=== PATIENT | female | born 1945 | race Asian ===

== ENCOUNTER 2018-09-05 10:26 | Emergency (ER) | payer OTHER, MEDICAID ==
[~2018-09-05] VITALS: Ht 142.2 cm; Wt 52.2 kg
[2018-09-05 10:30] VITALS: Ht 142.2 cm; Wt 52.2 kg
[2018-09-05 12:16] VITALS: BP 132/87
== END 2018-09-05 12:16 | disposition home or self-care (01) ==
LOC: ED 10:26 → EDBD 10:26 → ED 12:16
DX: S52.512A Displaced fracture of left radial styloid process, initial encounter for closed fracture (principal); S52.612A Displaced fracture of left ulna styloid process, initial encounter for closed fracture; E78.00 Pure hypercholesterolemia, unspecified; I10 Essential (primary) hypertension; G20 Parkinson's disease; Z98.890 Other specified postprocedural states; W18.30XA Fall on same level, unspecified, initial encounter; Y93.89 Activity, other specified; Y92.89 Other specified places as the place of occurrence of the external cause; Y99.8 Other external cause status
CPT/HCPCS: A4570

== ENCOUNTER 2018-10-06 21:00 | Inpatient (IN) | payer OTHER, MEDICAID ==
[~2018-10-06] VITALS: Ht 154.9 cm; Wt 54.4 kg
[2018-10-06 21:04] VITALS: Ht 154.9 cm; Wt 54.4 kg
--- NOTE | 2018-10-06 21:33 | NUR ---
PT BIB [facility] FROM HOME, PER FAMILY AT BEDSIDE, PT HAS HAD INTERMITTANT N/V X 2-3 WEEKS WITH INCREASED GENERALIZED WEAKNESS AND BODY ACHES, NECK/KNEE, PAIN TODAY, 10/22. FAMILY DENIES DIARRHEA/CONSTIPATION, PAINFUL URINATION, FEVERS, OR RESP ILLNESS AT THIS TIME. PER FAMILY, PT HAS HAD TRX FOR UTI, AND ADJUSTMENT TO BP MEDS RECENTLY. NO SIGNS OF DISTRESS AT THIS TIME.
[2018-10-06 21:39] LABS: BASOPHIL % 0.9 % (0-2); PLATELET COUNT 182 x10^3mcL (130-400); RED CELL DISTRIBUTION WIDTH 13.9 % (11.5-14.5)
[2018-10-06 21:49] LABS: ALBUMIN 3.1 g/dL (3.4-5.0); ALKALINE PHOSPHATASE 40 U/L (46-116); ALT/SGPT 12 U/L (14-59); AST/SGOT 13 U/L (15-37); BILIRUBIN TOTAL 0.7 mg/dL (0.20-1.00); CALCIUM 8.2 mg/dL (8.5-10.1); CARBON DIOXIDE 27.2 mmol/L (21-32); CHLORIDE SERUM 110 mmol/L (98-107); CREATININE SERUM 1.5 mg/dL (0.6-1.0); GLUCOSE SERUM 165 mg/dL (74-106); SODIUM SERUM 145 mmol/L (136-145); TOTAL PROTEIN, SERUM 5.7 g/dL (6.4-8.2)
[2018-10-06 21:57] LABS: UA SPECIFIC GRAVITY >=1.030 (1.005-1.035); microscopic required? YES; urine erythrocyte NEGATIVE (NEGATIVE)
[2018-10-06] MEDS ORDERED: COZAAR100 MG PO (22:53)
[2018-10-06] MEDS ORDERED: LATANOPROST2.5 ML (22:54)
--- NOTE | 2018-10-06 22:54 | NUR ---
PT RESTING IN BED WITH EYES CLOSED WITH NO SIGNS OF DISTRESS AT THIS TIME. FAMILY AT BEDSIDE.
[2018-10-06] MEDS ORDERED: SINEMET 25-1001 TAB (22:55)
[2018-10-06] MEDS ORDERED: SIMBRINZA8 ML (22:55)
[2018-10-06] MEDS ORDERED: HYDRALAZINE HCL25 MG ×2 (22:55→22:57)
[2018-10-06] MEDS ORDERED: ASPIR 8181 MG (22:55)
[2018-10-06] MEDS ORDERED: BETHANECHOL CHL25 MG (22:56)
[2018-10-06] MEDS ORDERED: MELOXICAM15 M1 (22:56)
[2018-10-06] MEDS ORDERED: BACLOFEN10 MG (22:56)
[2018-10-06] MEDS ORDERED: LIPI20 ×2 (22:56→22:57)
[2018-10-06] MEDS ORDERED: COZAAR100 MG (22:56)
[2018-10-06] MEDS ORDERED: AZILECT1 M1 (22:57)
[2018-10-06] MEDS ORDERED: NATURE'S BLEND F1 MG (22:57)
--- NOTE | 2018-10-06 23:25 | NUR ---
PT RESTING IN BED WITH NO SIGNS OF DISTRESS AT THIS TIME. FAMILY AT BEDSIDE SPEAKING WITH MED STUDENT.
[2018-10-06 23:48] LABS: microscopic required? NO
[2018-10-06 23:53] LABS: urine erythrocyte NEGATIVE (NEGATIVE)
--- NOTE | 2018-10-06 23:55 | NUR ---
REPORT GIVEN TO ARLINE MARINELLI.
--- NOTE | 2018-10-07 00:09 | NUR ---
RECEIVED PT VIA [employer] FROM E/D, ACCOMPANIED BY RN, TRANSPORTER, AND PT'S DAUGHTER. PT A/A/O X 4, CALM, COOPERATIVE. ON TELE # 19, HR 62, NSR, DENIES CHEST PAIN OR DISCOMFORT AT THIS TIME. NO ACUTE RESPIRATORY DISTRESS NOTED. ABD SOFT, FLAT, NON-TENDER, NORMOACTIVE BOWEL SOUNDS X 4 QUADS, LAST BM 10/06/18, SOFT, DENIES NAUSEA, WEARS UPPER/LOWER PARTIAL DENTURES. VOIDS FREELY, DENIES DYSURIA. GENERALIZED WEAKNESS, ABLE TO AMBULATE W/ ASSIST, USES WALKER @ HOME, NOTED BUE TREMORS, DAUGHTER STATED THAT PT FELL LAST MONTH AND BROKE HER R WRIST; IT HAS SINCE HEALED; C/O INTERMITTENT THROBBING NECK PAIN 08/22, EXACERBATED BY TWISTING, RELIEVED BY REST AND PAIN MEDICATIONS. IV SITE RAC 20G, CDI. ORIENTED PT AND DAUGHTER TO ROOM, BED CONTROLS, CALL LIGHT SYSTEM. SIDE RAILS UP X 2, BED IN LOW POSITION. WILL ENDORSE TO YVES RBUIN.
[2018-10-07 00:12] LABS: T3 TOTAL 0.7 ng/mL
[2018-10-07 00:15] LABS: AMPHETAMINE QUAL UR NONE DETECTED (See below)
[2018-10-07 00:33] VITALS: BP 120/55
[2018-10-07 00:43] LABS: FREE T4 0.98 ng/dL (0.76-1.46); FREE THYROXINE INDEX 2.3 ug/dL (1.4-4.5); T4(THYROXINE) 6.4 ug/dL (4.7-13.3)
--- NOTE | 2018-10-07 00:53 | NUR ---
PT AWAKE ALERT VERBAL DENIES PAIN AT THIS TIME, IVF NS STARTED @ 100 CC/HR, MD MADE AWARE OF K+ LEVEL 3.0 AWAITING FOR ORDERS, CONT TO MONITOR.
[2018-10-07 01:16] LABS: CHOLESTEROL/HDL RATIO 3.2; MAGNESIUM 1.6 mg/dL (1.8-2.4)
--- NOTE | 2018-10-07 01:46 | NUR ---
PT ASLEEP DURING ROUNDS NO S/SX OF PAIN, NO DISTRESS, SB IN THE MONITOR HR @ 50'S IVF INFUSING WELL ORDERED, CALL LIGHT AT REACH, CONT TO MONITOR.
--- NOTE | 2018-10-07 01:57 | NUR ---
REMINDED RESIDENT ON DUTY OF LOW K+ LEVEL STILL NOT REPLACED, AWAITING FOR ORDERS.
--- NOTE | 2018-10-07 03:19 | NUR ---
POTASSIUM 20 MEQ IV HANGED FOR K+LEVEL 3.0, ALSO GAVE MG RIDER FOR MG LEVEL 1.6, PT AWAKE ORIENTED UTILIZED PHONE TRANSLATION TO COMMUNICATE, DENIES PAIN, CONT TO MONITOR.
[2018-10-07 05:23] VITALS: BP 112/55
--- NOTE | 2018-10-07 06:25 | NUR ---
COMPLETED K-RIDER AND MG RIDER ORDERED ROCAEL WELL, PT SLEPT INTERMITTENT DURING THE SHIFT, DENIES PAIN NO DISTRESS, DUE MEDS GIVEN, WILL ENDORSE TO INCOMING SHIFT FOR F/U CARE.
[2018-10-07 06:53] LABS: BASOPHIL % 0.6 % (0-2); PLATELET COUNT 177 x10^3mcL (130-400); RED CELL DISTRIBUTION WIDTH 13.8 % (11.5-14.5)
[2018-10-07 07:01] LABS: CALCIUM 8.1 mg/dL (8.5-10.1); CARBON DIOXIDE 20.7 mmol/L (21-32); CHLORIDE SERUM 115 mmol/L (98-107); CREATININE SERUM 1.3 mg/dL (0.6-1.0); GLUCOSE SERUM 85 mg/dL (74-106); POTASSIUM SERUM 3.9 mmol/L (3.5-5.1); SODIUM SERUM 146 mmol/L (136-145)
--- NOTE | 2018-10-07 07:05 | NUR ---
RECEIVED PT FROM NIGHT NURSE. PT IS LAYING DOWN IN BED AND LOOKS TO BE IN NO ACUTE DISTRESS AT THIS TIME. ULTRASOUND IS AT BEDSIDE TAKING US OF ABD AND CAROTID. TELE MONITOR 19 PRESENT. RESPIRATIONS EVEN AND UNLABORED ON ROOM AIR. IV SITE PATENT WITH NO SIGNS OF ERYTHEMA OR SWELLING WITH IV FLUIDS INFUSING. CALL LIGHT WITHIN REACH. WILL CONITNUE TO MONITOR.
[2018-10-07 08:08] VITALS: BP 118/66
--- NOTE | 2018-10-07 10:00 | NUR ---
PT IS LAYING DOWN IN BED. FAMILY MEMBER AT BEDSIDE. PT LOOKS TO BE IN NO ACUTE DISTRESS AT THIS TIME. CALL LIGHT WITHIN REACH. WILL CONITNUE TO MONITOR.
[2018-10-07 11:42] VITALS: BP 138/70
--- NOTE | 2018-10-07 12:53 | NUR ---
PT COMPLAINING OF FEELING NAUSEATED. EMESIS BASIN AT BEDSIDE. WILL MEDICATE ACCORDING TO EMAR.
--- NOTE | 2018-10-07 14:00 | NUR ---
GAVE PT A BEDBATH WELL A NEW GOWN AND SHEETS. PT TOLERATED WELL AND IS NOW MADE COMFORTABLE IN BED. CALL LIGHT WITHIN REACH. WILL CONINTUE TO MONITOR.
[2018-10-07 16:23] VITALS: BP 148/62
--- NOTE | 2018-10-07 20:00 | NUR ---
RECEIVED PT , RESTING QUIETLY IN BED. ALERT AND ORIENTED. DENIES ANY DISCOMFORT AT THIS TIME. RESP. EVEN AND UNLABORED. LUNG SOUNDS CLEAR BILAT. ON ROOM AIR,NO ACUTE DISTRESS NOTED. ON TELE #19, SHOWS SR. DENIES CP. ABD. SOFT, NON DISTENDED, BS ACTIVE, NO N/V NOTED. HL TO RAC, INTACT AND PATENT. ASSISTED WITH HS CARE. CALL LIGHT WITHIN REACH. WILL CONTINUE TO MONITOR.
[2018-10-07 20:40] VITALS: BP 165/70
--- NOTE | 2018-10-07 23:03 | NUR ---
PT,S CARE ENDORSED TO WHITNEY MARINELLI.
--- NOTE | 2018-10-08 00:05 | NUR ---
RECEIVED REPORT FROM RODNEY MARINELLI FOR CONTINUATION OF CARE. PATIEN AWAKE IN BED. RESPIRATION EVEN AND UNLABORED, ON ROOM AIR. RESPIRATION EVEN AND UNLABORED, ON ROOM AIR. NO COMPLAIN OF DISCOMFORT/PAIN. WILL CONTINUE TO MONITOR.
[2018-10-08 05:05] VITALS: BP 153/71
--- NOTE | 2018-10-08 05:55 | NUR ---
PATIENT RESTING IN BED. RESPIRATION EVEN AND UNLABORED, ON ROOM AIR. DENIES PAIN AT THIS TIME. IV PATENT AND INTACT. ASSISTED WITH NEEDS. SAFETY OBSERVED. PLACED BED IN THE LOWEST POSITION. PLACED CALL LIGHT WITHIN REACH AT ALL TIMES.
[2018-10-08 06:26] LABS: PLATELET COUNT 200 x10^3mcL (130-400); RED CELL DISTRIBUTION WIDTH 13.8 % (11.5-14.5)
--- NOTE | 2018-10-08 07:15 | NUR ---
RECIEVED PT FROM NIGHT NURSE. PT IS LAYING DOWN IN BED WITH HOB UP RESTING. PT LOOKS TO BE IN NO ACUTE DISTRESS AT THIS TIME. RESPIRATIONS EVEN AND UNLABORED ON ROOM AIR. SLID PT UP IN BED AND MADE COMFORTABLE. IV SITE PATENT WITH NO SIGNS OF ERYTHEMA OR SWELLING. BED IN LOWEST POSITION, CALL LIGHT WITHIN REACH. WILL CONTINUE TO MONITOR.
[2018-10-08 07:47] LABS: CALCIUM 8.4 mg/dL (8.5-10.1); CARBON DIOXIDE 25.6 mmol/L (21-32); CHLORIDE SERUM 112 mmol/L (98-107); CREATININE SERUM 1.1 mg/dL (0.6-1.0); GLUCOSE SERUM 98 mg/dL (74-106); MAGNESIUM 2.1 mg/dL (1.8-2.4); PHOSPHOROUS 3.3 mg/dL (2.5-4.9); POTASSIUM SERUM 3.6 mmol/L (3.5-5.1); SODIUM SERUM 147 mmol/L (136-145)
[2018-10-08 08:11] VITALS: BP 146/69
[2018-10-08] MEDS ORDERED: LOSARTAN POTASS50 M1 PO (08:55)
[2018-10-08 11:53] VITALS: BP 122/71
[2018-10-08 13:12] VITALS: BP 122/71
[2018-10-08] MEDS ORDERED: CHLORTHALIDONE25 MG (13:15)
[2018-10-08] MEDS ORDERED: RHOPRESSA2.5 ML (13:15)
--- NOTE | 2018-10-08 13:30 | NUR ---
INFORMED DR OF PHYSCIAL THERAPY REQUEST TO SEND PT TO SNF FOR PHYSCIAL THERAPY. CANCELED DISCHARGE ORDER. SPOKE WITH FAMILY MEMBER AND PT, BOTH AGREE TO SNF PLACEMENT.
--- NOTE | 2018-10-08 14:45 | NUR ---
PT REFUSING TO GO TO SNF AND WOULD LIKE TO LEAVE TO GO HOME. PT CHANGED INTO CLOTHES AND RIPPED OF TELE MONITOR. INFORMED PT OF THE RISK OF LEAVING AMA, FAMILY MEMBER VERBALIZED UNDERSTANDING AND STATED PT STILL WANTS TO GO HOME NOW. ASKED FAMILY MEMBER IF PT WOULD BE OKAY WITH HOME HEALTH PT, FAMILY MEMBER AND PT AGREEABLE, PAGED DR. HERNANDEZ TO INFORM.
--- NOTE | 2018-10-08 15:14 | NUR ---
ATTEMPTED TO PUT ON TELE MONITOR UNTIL CALLS BACK ABOUT HOME PHYSCIAL THERAPY, PT REFUSED. PT EDUCATED UPON REFUSAL. AWATING TO HEAR BACK FROM DR. HERNANDEZ
--- NOTE | 2018-10-08 15:20 | NUR ---
DR. HERNANDEZ CAME TO PT BEDSIDE TO TALK WITH PT AND FAMILY MEMBER ABOUT PT STATUS FOR DISCHARGE. FAMILY MEMBER TRANSLATED AND PT STATES (TRANSLATED BY FAMILY MEMBER) THAT SHE WANTS TO GO HOME. PT SEEMS VERY AGITATED AND IS SPEAKING VERY LOUDLY WHEN RESPONDING.
--- NOTE | 2018-10-08 16:20 | NUR ---
PT AWAKE, ALERT AND ORIENTED AT TIME OF DISCHARGE. PT SEEMED PLEASANT AND LOOKED TO BE IN NO ACUTE DISTRESS AT TIME OF DISCHARGE. PT DISCHARGED HOME AND WAS PROVIDED A NUMBER FOR HOME HEALTH FOR PHYSICAL THERAPY. PT WENT TO LOBBY VIA WHEELCHAIR ACCOMPANIED BY NURSE WITH BELONGINGS IN HAND , FAMILY MEMBER DOWNSTAIRS WITH CAR TO TAKE PT HOME PROVIDED PT AND FAMILY MEMBER WITH DISCHARGE INSTRUCTIONS AND EDUCATION WELL PRESCRIPTIONS. FAMILY MEMBER VERBALIZED UNDERSTANDING. INFORMED PT TO FOLLOW UP WITH PCP WITHIN 1 WEEK OF DISCHARGE. ID BANDS REMOVED. IV CATHETER REMOVED AND FULLY INTACT. ALL QUESTIONS AND CONCERNS ADDRESSED.
--- NOTE | 2018-10-10 14:47 | NUR ---
PHYSICAL THERAPY DAILY NOTES CO-SIGN All documentation done by the Behavioral Medical Director for 10/10/18 has been reviewed. I agree with the documentation. Reviewed/Co-Signed by: Mary Rogers PT Documentation Done by:FRANCO SAMPSON PTA FOR 10/08/18
== END 2018-10-08 16:34 | disposition home or self-care (01) | DRG 314 ==
LOC: ED 21:00 → DU 23:12
PROVIDERS: Emergency Medicine; ADMIT General Practice
DX: I95.9 Hypotension, unspecified (principal); N17.0 Acute kidney failure with tubular necrosis; E44.0 Moderate protein-calorie malnutrition; N39.0 Urinary tract infection, site not specified; I95.2 Hypotension due to drugs; T46.5X5A Adverse effect of other antihypertensive drugs, initial encounter; T50.2X5A Adverse effect of carbonic-anhydrase inhibitors, benzothiadiazides and other diuretics, initial encounter; E87.6 Hypokalemia; E86.1 Hypovolemia; E86.0 Dehydration; R54 Age-related physical debility; G20 Parkinson's disease; F02.80 Dementia in other diseases classified elsewhere, unspecified severity, without behavioral disturbance, psychotic disturbance, mood disturbance, and anxiety; I10 Essential (primary) hypertension; D50.9 Iron deficiency anemia, unspecified; E78.00 Pure hypercholesterolemia, unspecified; Z91.81 History of falling; Z68.22 Body mass index [BMI] 22.0-22.9, adult; Y92.009 Unspecified place in unspecified non-institutional (private) residence as the place of occurrence of the external cause
CPT/HCPCS: 84439; 97116-GP; 97530-GP; G0378; J0696; J1885; J2405; J3475; J3480; J7030; J7040; J7060; Q0092

== ENCOUNTER 2018-12-01 13:49 | Inpatient (IN) | payer OTHER, MEDICAID ==
[~2018-12-01] VITALS: Ht 160 cm; Wt 43.7 kg
[~2018-12-01 13:49] MED LIST: ASPIR 8181 MG; AZILECT1 M1; BACLOFEN10 MG; BETHANECHOL CHL25 MG; CHLORTHALIDONE25 MG; COZAAR100 MG; COZAAR100 MG PO; HYDRALAZINE HCL25 MG; LATANOPROST2.5 ML; LIPI20; LOSARTAN POTASS50 M1 PO; MELOXICAM15 M1; NATURE'S BLEND F1 MG; RHOPRESSA2.5 ML; SIMBRINZA8 ML; SINEMET 25-1001 TAB
[2018-12-01 14:18] VITALS: Ht 160 cm; Wt 43.7 kg
--- NOTE | 2018-12-01 14:26 | NUR ---
PT BROUGHT IN BY [facility] FOR 5150. PER DAUGHTER AT BEDSIDE AND 5150 HOLD, PT BROUGHT IN FOR TAKING 12 TRAMADOL PILLS AT HOME WITH INTENTIO OF KILLING HERSELF. PT DAUGHTER REPORTING PT LIVES WITH HER AND THAT SHE IS PLANNING TO GO ON VACATION WEDNESDAY AND SHE WILL BE GONE FOR 3 WEEKS AND PT HAS TO STAY WITH HER SISTER AND THE PATIENT DOES NOT WANT TO GO THERE. PT USES WALKER WITH HELP PER DAUGHTER AT HOME. PT PRIMARY LANGUAGE IS COMORAN. PT ON MOTOR VEHICLE SALESPERSON, SIDE RAILS UP, IV ESTABLISHED YARD PILOT 20G LAC, AND IN VIEW OF NURSES STATION. PT MEDICATION IN BELINGINGS BAG AND PLACED IN NURSES STATION.
--- NOTE | 2018-12-01 14:42 | NUR ---
CALLED POISION CONTROL TO REPORT PT TOOK TRAMADOL 50 MG X12 APPROX 1245 THIS AFTERNOON. PER LOIS, TRAMADOL CAN CAUSE SEDATION AND MINOR BRADYCARDIA OR HYPOTENSION. TREATMENT AT THIS POINT WOULD BE; TO HAVE PT ON CM 4-6 HOURS AND MONITOR FOR LETHARGY, EKG, FULL LAB PANEL, NO CHARCOAL AND GIVE SUPPORTIVE CARE.
--- NOTE | 2018-12-01 14:44 | NUR ---
PT ON FULL CM, DAUGHTER AT BEDSIDE.
--- NOTE | 2018-12-01 15:03 | NUR ---
SHARED POISON CONTROL RECOMMENDATIONS W/ DR. GOMEZ.
[2018-12-01 15:36] LABS: CALCIUM 8.3 mg/dL (8.5-10.1); CHLORIDE SERUM 108 mmol/L (98-107); CREATININE SERUM 1.2 mg/dL (0.6-1.0); GLUCOSE SERUM 107 mg/dL (74-106); POTASSIUM SERUM 3.4 mmol/L (3.5-5.1); SODIUM SERUM 145 mmol/L (136-145)
[2018-12-01 15:40] LABS: ALKALINE PHOSPHATASE 55 U/L (46-116); ALT/SGPT 30 U/L (14-59); AST/SGOT 17 U/L (15-37); BILIRUBIN TOTAL 1.27 mg/dL (0.20-1.00); TOTAL PROTEIN, SERUM 7.4 g/dL (6.4-8.2)
--- NOTE | 2018-12-01 15:46 | NUR ---
SON AT BEDSIDE, PT RESTING AND ON CM. IV FLUIDS COMPLETED AND PT IN VIRE OF NURSES STATION.
[2018-12-01 16:10] LABS: BASOPHIL % 0.7 % (0-2); PLATELET COUNT 208 x10^3mcL (130-400); RED CELL DISTRIBUTION WIDTH 12.9 % (11.5-14.5)
--- NOTE | 2018-12-01 17:21 | NUR ---
PT RETING IN BED IN VIEW OF NURSES STATION. NO APPARENT DISTRESS NOTED. PT ON CLINIC MD ASSOCIATE, COVERED WITH WARM BLANKET FOR COMFORT. I WILL CONTINUE TO MONITOR PT.
--- NOTE | 2018-12-01 19:11 | NUR ---
GAVE REPORT TO MEÑO MARINELLI TO CONTINUE PT CARE AT THIS TIME.
--- NOTE | 2018-12-01 19:27 | NUR ---
PATIENT SEEN SLEEPING, FAMILY AT THE BEDSIDE.
[2018-12-01 20:41] LABS: AMPHETAMINE QUAL UR NONE DETECTED (See below)
[2018-12-01 21:01] LABS: UA SPECIFIC GRAVITY 1.015 (1.005-1.035); microscopic required? YES; urine erythrocyte NEGATIVE (NEGATIVE)
--- NOTE | 2018-12-01 21:24 | NUR ---
PATIENT IS ADMITTED. RESIDENT IS AT THE BEDSIDE. NO BED YET NO AVAILABLE SITTER.
--- NOTE | 2018-12-01 21:59 | NUR ---
FAMILY REQUESTED FOOD. PATIENT WAS GIVEN SANDWICH AND JUICE.
--- NOTE | 2018-12-01 23:12 | NUR ---
PATIENT WAS GIVEN THE BEDPAN AND VOID. wAITING FOR A BED.
--- NOTE | 2018-12-01 23:51 | NUR ---
[facility] FOLLOW [facility] ON PATIENT'S PROGRESS; WAS UPDATED.
[2018-12-02] MEDS ORDERED: COZAAR100 MG PO (01:27)
--- NOTE | 2018-12-02 02:12 | NUR ---
PATIENT IS SLEEPING, NO DISTRESS.
[2018-12-02 03:46] LABS: CHOLESTEROL/HDL RATIO 1.9
--- NOTE | 2018-12-02 04:09 | NUR ---
REPORT WAS GIVEN TO KARA. RICHTER TRANSPORTED TO ROOM 209A.
--- NOTE | 2018-12-02 04:15 | NUR ---
Pt. received via gurney from the ED. Pt. was then transferred from bed to wheelchair to station bed with max assist. Pt. is a Citizen Of [place] speaking pt. only, used coupon redemption clerk phone #[phone] (Nima) to help admit pt. When asked why she was brought to the hospital, pt. states that daughter says she doesn't have Kidney Failure, but she herself believes that she has. Pt. also states that the daughter is lying about pt. taking medicine. When asked if pt. took 12 tramadol, pt. denies taking the medicine. Pt. states that she took 1 tramadol in the morning and 1 at 8pm at night. When asked if pt. wants to hurt herself, she states that "I love Buddha, and he won't let me commit suicide." Pt. denies any pain, a/o x4, Tele #1, Sinus Rhythm, 96. O2 was low at admission, around 90%, respirations at 18, unlabored and symmetrical. Applied O2 via NC @ 2L. Pt. satting at 96% and denies SOB. Abd. soft, round, normoactive bowel sounds, denies any abd. pain. As per pt. last BM was 2 days ago. Reports h(x) of constipation d/t medication taken. Pt. wears adult briefs at home, denies dysuria. Pt. was able to void in bedpan in ER. Pt. has h(x) of Parkinson's, bilateral UE / LE tremors. Pt. nomrally ambulatory w/ FWW at home. Skin intact otherwise. IV site @ L AC, Saline Locked, no redness, swelling, or pain noted. UDS (-), K @ 3.4 and replenished @ ER. Pt. oriented to room and call light system, call light placed within reach, bed placed at lowest position, sitter at bedside, will continue to monitor. *PT. states, "I caused all these problems, and hope I can go home soon."
[2018-12-02 04:57] VITALS: BP 161/91
[2018-12-02 05:30] VITALS: BP 143/76
--- NOTE | 2018-12-02 05:37 | NUR ---
PAGED DR. ROMEO IN REGARDS TO PT ADMIT ORDERS FOR MEDSURG, ALTHOUGH PT HAS A HISTORY OF PROLONGED QT INTERVALS AND NEEDS CARDIAC MONITORING PER POISON CONTROL. PER DR. ROMEO, WILL TRANSFER PT TO TELE. WILL WAIT FOR ORDERS.
[2018-12-02 06:51] LABS: BASOPHIL % 0.7 % (0-2); PLATELET COUNT 190 x10^3mcL (130-400); RED CELL DISTRIBUTION WIDTH 13.3 % (11.5-14.5)
[2018-12-02 06:58] LABS: CALCIUM 8.3 mg/dL (8.5-10.1); CARBON DIOXIDE 27.3 mmol/L (21-32); CHLORIDE SERUM 108 mmol/L (98-107); CREATININE SERUM 1.1 mg/dL (0.6-1.0); GLUCOSE SERUM 93 mg/dL (74-106); POTASSIUM SERUM 4.3 mmol/L (3.5-5.1); SODIUM SERUM 143 mmol/L (136-145)
[2018-12-02 08:21] VITALS: BP 163/93
--- NOTE | 2018-12-02 08:49 | NUR ---
ADMINISTERED MEDICAITON PER MAR. DAUGHTER AT BEDSIDE, UPDATRED DAUGHTER ON PLAN OF CARE, PATIENT STATING SHE DOES NOT WANT TO BE TRANSFERRED TO OUTPATIENT FACILITY. FADUMO THINKS THIS WAS AN ATTEMPT TO GET ATTENTION FROM HER FAMILY BECAUSE SHE DOES NOT WANT TO BE MOVED FROM ONE DAUGHTERS HOUSE TO ANOTHER. PATIENT IS CALM AT THIS TIME WITH NO COMPLAINTS OF PAIN. INFORMED PATIENT AND DAUGHTER THAT WE ARE WAITING FOR CONSULT FROM DR DELGADO BUT UNKNOWN WHEN HE WILL COME TO SEE PATIENT. CALL IGHT WITHIN REACH, SITTER IN ROOM WITH PATIENT
--- NOTE | 2018-12-02 10:08 | NUR ---
DR WILSON AND DR FERRARA ROUNDED ON PATIENT. UPDATED DR OF STATEMENTS FROM FAMILY. ORDERS TO WEEN PATIENT OFF OXYGEN TO BE MEDICALLY CLEARED. RECEIVED CALL FROM POISION CONTROL AND INFORMED ONESIMO FROM POISON CONTROL OF PATIENT CONDITION AND LACK OF UPDATED EKG. DR FERRARA ENTERED ORDER FOR NEW EKG. AWAITING CONSULTATION FROM DR DELGADO.
--- NOTE | 2018-12-02 12:09 | NUR ---
PATIENT OXYGEN SATURATION ON ROOM AIR WAS 95% REMOVED NASAL CANULA AND WILL CONTINUE TO MONITOR. WILL AWAITING CONSULT FROM DR DELGADO. SITTER IN ROOM WITH PATIENT
[2018-12-02 13:15] VITALS: BP 152/85
--- NOTE | 2018-12-02 13:16 | NUR ---
ADMINSITERED MEDICAITON PER MAY. UPDATED FAMILY MEMBER THAT DR DELGADO HAS NOT COME YET, HE MAY COME IN THE EVENING. PATIENT CONTINUES TO HAVE O2 SAT OF 95 ON ROOM AIR. CALL LIGHT WITHIN REACH, SITTER IN ROOM
[2018-12-02 17:18] VITALS: BP 149/85
--- NOTE | 2018-12-02 17:37 | NUR ---
ADMINISTERED MEDICATION PER MAR. MAXWELL SITTING UP TO EAT AT THIS TIME. REMAINS 96% ON ROOM AIR. FAMILY WAS UPDATED THAT WE ARE STILL WAITING DR DELGADO TO SEE PATIENT. CALL LIGHT WITHIN REACH, BED IN LOWEST POSITION AND SITTER IN ROOM
--- NOTE | 2018-12-02 19:35 | NUR ---
RECEIVED PT FROM DAY SHIFT RN. PT AAOX4. DJIBOUTIAN SPEAKING ONLY, DAUGHTER AT BEDSIDE TO HELP TRANSLATE. BREATHING EVEN AND UNLABORED. NO SOB NOTED. TELE #1 SR HR 82. PT DENIES CHEST PAIN/PRESSURE. PT DENIES ANY SUICIDAL/HARMFUL THOUGHTS. GENERALIZED WEAKNESS. ABD SOFT/ROUND ACTIVE BOWEL SOUNDS. DENIES ABD PAIN/N/V. IV LAC PATENT, SL. CALL BUTTON WITHIN REACH. SAFETY PRECAUTIONS IN PLACE. SITTER AT BEDSIDE. WILL CONTINUE TO MONITOR.
[2018-12-02 20:00] VITALS: BP 143/77
--- NOTE | 2018-12-02 20:02 | NUR ---
Shift report was given will continue to help facilitate placement
--- NOTE | 2018-12-03 00:37 | NUR ---
PT AWAKE. BREATHING EVEN AND UNLABORED ON RA. NO SOB NOTED. NO SIGNS OF DISTRESS NOTED. CALL BUTTON WITHIN REACH. SAFETY PRECAUTIONS IN PLACE. SITTER AT BEDSIDE. WILL CONTINUE TO MONITOR.
--- NOTE | 2018-12-03 03:00 | NUR ---
ROUNDS MADE. PT RESTING. NO SIGNS OF DISTRESS. CALL BUTTON WITHIN REACH. SAFETY PRECAUTIONS IN PLACE. WILL CONTINUE TO MONITOR.
--- NOTE | 2018-12-03 05:43 | NUR ---
PT SLEPT ON AND OFF THROGUHOUT THE NIGHT WITH NO SIGNS OF DISTRESS. BREATHING EVEN AND UNLABORED ON RA WITH NO SOB NOTED. PT DENIES ANY PAIN OR DISTRESS. PT ALSO DENIES HARMFUL THOUGHTS/SUICIDAL THOUGHTS. PT IV PATENT, SL. MEDICATED PER EMAR. CALL BUTTON WITHIN REACH. SAFETY PRECAUTIONS IN PLACE. SITTER AT BEDSIDE. TURN AND REPOSITONED EVERY 2 HOURS AND NEEDED. WILL CONTINUE TO MONITOR AND ENDORSE CARE TO DAY SHIFT RN.
[2018-12-03 05:44] VITALS: BP 163/82
[2018-12-03 06:18] VITALS: BP 159/81
[2018-12-03 06:44] LABS: CALCIUM 8.2 mg/dL (8.5-10.1); CARBON DIOXIDE 30.7 mmol/L (21-32); CHLORIDE SERUM 106 mmol/L (98-107); GLUCOSE SERUM 104 mg/dL (74-106); MAGNESIUM 1.8 mg/dL (1.8-2.4); PHOSPHOROUS 3.7 mg/dL (2.5-4.9); POTASSIUM SERUM 4.9 mmol/L (3.5-5.1); SODIUM SERUM 143 mmol/L (136-145)
[2018-12-03 06:52] LABS: BASOPHIL % 0.9 % (0-2); PLATELET COUNT 178 x10^3mcL (130-400); RED CELL DISTRIBUTION WIDTH 12.8 % (11.5-14.5)
--- NOTE | 2018-12-03 07:30 | NUR ---
RECEIVED HAND OFF REPORT FROM NIGHT NURSE, NO ACUTE CHANGES DURING THE NIGHT, PATIENT FOUND RESTING COMFORTABLY IN BED, FOLLOWING SIMPLE COMMANDS, STATELESS SPEAKING ONLY. NO COMPLAINTS OF PAIN. PATIENT ON 5150 HOLD FOR POSSIBLE SUICIDE ATTEMPT, PATIENT HAS NO SI AT THIS TIME. AWAITING ON DR DELGADO TO CONSULT ON PATIENT AND GIVE RECOMENDATIONS. SITTER IN ROOM WITH PATIENT. CALL LIGHT WITHIN REACH OF PATIENT
--- NOTE | 2018-12-03 07:32 | NUR ---
PT RESTING. NO SIGNS OF DISTRESS NOTED. ENDORSED CARE TO DAY SHIFT RN, ALL QUESTIONS ADDRESSED.
--- NOTE | 2018-12-03 09:52 | NUR ---
ADMINSTERED MEDICATION PER MAR. PATIENT FAMILY AT BEDSIDE, UPDATED THAT DR DELGADO DID NOT SEE PATIENT WHEN HE CAME LAST NIGHT. FAMILY REQUESTING TO BE CALLED SOON DOCTOR COMES IN EVEN IF LATE AT NIGHT. DR WILSON AND DR FERRARA ROUNDED ON PATIENT WITH NO NEW CHANGES. PATIENT COMFORTABLE AND DENIES SUICIDAL IDIATIONS. CALL LIGHT WITHIN REACH, SITTER IN ROOM, WILL CONTINUE TO MOINTOR
--- NOTE | 2018-12-03 11:37 | NUR ---
PATIENT RESTING AT THIS TIME, SITTER AT BEDSIDE. NO APPARENT DISTRESS FROM PATIENT. CALL LIGHT WITHIN REACH, WILL CONTINUE TO MONITOR
[2018-12-03 11:40] VITALS: BP 147/85
--- NOTE | 2018-12-03 11:43 | NUR ---
PATIENT TEMP WAS 100.1, COOLING MEASURES IMPLIMENTED, REMOVED HEAVY BLANKET, REMOVED SOCKS, DECREASES AIR IN ROOM. PATIENT REFUSED ICE PACKS. WILL CONTINUE TO MONITOR, SITTER PRESENT IN ROOM
[2018-12-03 13:00] VITALS: BP 120/64
--- NOTE | 2018-12-03 13:33 | NUR ---
ADMINSTERED MEDICATION PER MAR. PATIENT RESTING AT THIS TIME, NO SIGNS OF PAIN OR DISCOMFORT, SITTER IN ROOM. CALL LIGHT WITHIN REACH
[2018-12-03 14:50] VITALS: BP 136/62
--- NOTE | 2018-12-03 15:44 | NUR ---
RECEIVED PT FROM JUD MARINELLI. PT RESTING IN BED, NO RESPIRATORY DISTRESS NOTED, TELE 1, HR 87, IN NO APPARANT PAIN, SITTER AT BEDSIDE, CALL LIGHT WITHIN REACH.
--- NOTE | 2018-12-03 15:54 | NUR ---
ENDORSED CARE TO BECKA RN, PATIENT RESTING WELL WITH SITTER AT BEDSIDE, ADDRESSED QUESTIONS.
--- NOTE | 2018-12-03 16:56 | NUR ---
CALLED [facility] AND SPOKE TO GIULIA, MADE HIM AWARE OF 'S ORDER TO TRANSFER PT TO [facility] AND PT IS MEDICALLY CLEARED PER . GIULIA FROM [facility] START WORKING ON PT TRANSFER. BECKA RN ASSIGNED TO THIS PT MADE AWARE OF ABOVE.
--- NOTE | 2018-12-03 17:14 | NUR ---
PT RESTING IN BED, NO RESPIRATORY DISTRESS NOTED, DENIES PAIN, SITTER AT BEDSIDE, CALL LIGTH WITHIN REACH.
--- NOTE | 2018-12-03 17:18 | NUR ---
Packet to be reviewed by [facility] staff for potential direct admit. Will also contact other facilities for potential admit. Will contact with any updates.
--- NOTE | 2018-12-03 17:38 | NUR ---
DAUGHTERS AT BEDSIDE STATE THEY DO NOT WANT PT TO GO TO PSYCH FACILITY AND WANT TO TAKE PT HOME UPON DC. CHARGE NURSE NOTIFIED. DR ALEM GASPAR.
--- NOTE | 2018-12-03 18:14 | NUR ---
DR FERRARA SPOKE TO FAMILY AT BEDSIDE. FAMILY STILL STATING THAT THEY DO NOT WANT PT TAKEN TO PSYCH FACILITY. PT RESTING IN BED, NO RESPIRATORY DISTRESS NOTED, DENIES PAIN, SITTER GIVING PT BED BATH, CALL LIGHT WITHIN REACH.
--- NOTE | 2018-12-03 19:14 | NUR ---
ENDORSED CARE TO ONESIMO MARINELLI AND CAROLYN MARINELLI.
--- NOTE | 2018-12-03 19:30 | NUR ---
RECIEVED PT IN THE BED. PT IS SEEMS AWAKE AND ALERT. TURKISH SPEAKING ONLY. BREATHING EVENLY AND UNLABORED ON ROOM AIR. LUNG SOUNDS CLEAR. NO RESPIRATORY DISTRESS OR SOB NOTED. ON TELE #1 AND NSR. NO S/S OF CHEST PAIN. PULSES ARE PALPABLE. NO EDEMA NOTED. GENERALIZED WEAKNESS BUT ABLE TO MOVE ALL EXTREMITIES. ABDOMINAL SOFT AND FLAT WITH NORMAL BOWEL SOUNDS. INCONTINENT OF URINE. SITTER AT BEDSIDE. NO DISTRESS NOTED. WILL CONTINUE TO MONITOR.
[2018-12-03 20:30] VITALS: BP 142/67
[2018-12-04 05:45] VITALS: BP 168/83
--- NOTE | 2018-12-04 06:00 | NUR ---
PT AWAKE AT THIS TIME. SLEPT MOST OF THE NIGHT. PT VOIDED AND GOOD PERINEAL CARE GIVEN. COOPERATIVE WITH NURSING CARE. NO CHANGE IN CONDITION. SITTER AT BEDSIDE.
[2018-12-04 06:28] LABS: BASOPHIL % 0.4 % (0-2); PLATELET COUNT 181 x10^3mcL (130-400); RED CELL DISTRIBUTION WIDTH 13.2 % (11.5-14.5)
[2018-12-04 06:35] LABS: CALCIUM 7.9 mg/dL (8.5-10.1); CARBON DIOXIDE 27.5 mmol/L (21-32); CHLORIDE SERUM 108 mmol/L (98-107); GLUCOSE SERUM 117 mg/dL (74-106); MAGNESIUM 1.8 mg/dL (1.8-2.4); PHOSPHOROUS 3.8 mg/dL (2.5-4.9); POTASSIUM SERUM 4.2 mmol/L (3.5-5.1); SODIUM SERUM 145 mmol/L (136-145)
--- NOTE | 2018-12-04 07:37 | NUR ---
A+OX4, NO RESPIRATORY DISTRESS NOTED, TELE 1, PULSES MODERATE AND EQUAL UZMA, PULSES MODERATE AND EQUAL UZMA, NO EDEMA NOTED, LUNG SOUNDS CTA, TOLERATING RA, BOWEL SOUNDS ACTIVE, INCONTINENT AT TIMES, GENERALIZED WEAKNESS, SKIN INTACT, SALINE LOCKED IN LAC, SITE WNL.
--- NOTE | 2018-12-04 07:56 | NUR ---
Shift report given, will continue to monitor notes and help with placement if needed
[2018-12-04 08:58] VITALS: BP 149/70
--- NOTE | 2018-12-04 09:03 | NUR ---
PT RESTING IN BED, NO RESPRIATORY DISTRESS NOTED, DENIES PAIN, COMPLAINING OF SORE THROAT, SADE MANUAL WINDER NOTIFIED, CALL LIGHT WITHIN REACH, SITTER AT BEDSIDE.
--- NOTE | 2018-12-04 09:09 | NUR ---
TELE 1 REMOVED AND RETURNED TO [facility]. PT NOW [facility].
--- NOTE | 2018-12-04 13:37 | NUR ---
PT RESTING IN BED, NO RESPRIATORY DISTRESS NOTED, DENIES PAIN, SITTER AT BEDSIDE, CALL LIGHT WITHIN REACH.
--- NOTE | 2018-12-04 13:51 | NUR ---
Initial Nutrition Assessment: Mariella Zarco 209T-A Dx: Suicidal, Overdose 5150 PMHx: Parkinson's Disease,Hypertension and Hypercholesterolemia PSHx: None Labs: (12/04) BUN:22H, Ca:7.9L, Hgb:11.9L Meds: Aspirin, Cepacol, Colace, Cozaar, Lipitor, Sinemet, Tylenol, Zofran Diet: Cardiac PO Intake: (12/02) B:50% L:25% (12/03) B:40% L:80% (12/04) B:50% PO intake x 5 meals:49% Ht: 63in, 5'3" Wt: 96#, 43.743kg BMI: 17.1kg/m2 (underweight) Bed scale: unable to obtain, sitting up in chair IBW:115#, 52kg %IBW: 83% UBW: unable to obtain Age: 73 y/o female Food Allergies: NKFA Skin: intact Suhail: 15 Edema: none GI:active bowel soudns Last BM:12/03 Per H&P, pt BIBA for suicide attempt. Per progress note 12/04, pt is alert and with c/o sore throat. Plan, per psych: transfer to psych facility. Sitter for safety. During visit, pt was seen sitting up in her chair eating her lunch. Spoke to sitter at bedside, who reports pt has a good appetite. Pt's daughter brought rice porridge from home which patient ate along with her breakfast. No GI issyues noted at this time. 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 Inadequate protein/energy intake related to pt food preference for Hebrew foods as evidenced by PO intake 49% x 5 meals. Intervention 1. Recommend adding Ensure Enlive BID (provides 700kcal and 40g protein) 2. Recommend continue with Cardiac diet. Monitor/Evaluate Goal: PO intake at least 75% of estimated needs Monitor: PO intake, Labs, GI function F/U in 2-3 days as high risk:12/06-
--- NOTE | 2018-12-04 13:53 | NUR ---
1. Recommend adding Ensure Enlive BID (provides 700kcal and 40g protein) 2. Recommend continue with Cardiac diet.
--- NOTE | 2018-12-04 16:54 | NUR ---
PT RESTING IN BED, NO RESPIRATORY DISTRESS NOTED, DENIES PAIN, SITTER AT BEDSIDE, CALL LIGHT WITHIN REACH.
[2018-12-04 17:38] VITALS: BP 140/68
--- NOTE | 2018-12-04 18:31 | NUR ---
PT RESTING IN BED, NO RESPIRATORY DISTRESS NOTED, DENIES PAIN, SITTER AT BEDSIDE, CALL LIGHT WITHIN REACH.
--- NOTE | 2018-12-04 19:24 | NUR ---
ENDORSED CARE TO CAROLYN AND ONESIMO MARINELLI.
--- NOTE | 2018-12-04 19:45 | NUR ---
RECIEVED PT IN THE BED. PT IS SEEMS AWAKE AND ALERT. STATELESS SPEAKING ONLY. PT DENIES ANY SUICIDAL IDEATION AT THIS TIME. BREATHING EVENLY AND UNLABORED ON ROOM AIR. LUNG SOUNDS CLEAR. NO RESPIRATORY DISTRESS OR SOB NOTED. MED SURGE PT. NO S/S OF CHEST PAIN. PULSES ARE PALPABLE. NO EDEMA NOTED. GENERALIZED WEAKNESS BUT ABLE TO MOVE ALL EXTREMITIES. ABDOMINAL SOFT AND FLAT WITH NORMAL BOWEL SOUNDS. INCONTINENT OF URINE. SITTER AT BEDSIDE. NO DISTRESS NOTED. WILL CONTINUE TO MONITOR.
[2018-12-04 21:49] VITALS: BP 137/74
--- NOTE | 2018-12-05 05:58 | NUR ---
PT SLEEPING AT THIS TIME. SLEPT MOST OF THE NIGHT. PT VOIDED AND GOOD PERINEAL CARE GIVEN. COOPERATIVE WITH NURSING CARE. NO CHANGE IN CONDITION. SITTER AT BEDSIDE.
[2018-12-05 06:30] VITALS: BP 154/75
--- NOTE | 2018-12-05 08:24 | NUR ---
Received report from [employer] strip inspector. [facility] aware of patient.
[2018-12-05 08:45] VITALS: BP 150/77
--- NOTE | 2018-12-05 10:43 | NUR ---
PLAN FOR DISCHARGE.
--- NOTE | 2018-12-05 11:54 | NUR ---
NOT IN ANY DISTRESS. NO COMPLAINTS. DAUGHTER VISITING.
[2018-12-05 11:59] VITALS: BP 150/77
--- NOTE | 2018-12-05 15:26 | NUR ---
DISCHARGE TEACHINGS REVIEWED WITH DAUGHTER. ZELALEMJASSON REMOVED. PATIENT NOT IN ANY DISTRESS. ESCORTED OFF THE FLOOR BY LANCE CREWMEMBER.
--- NOTE | 2018-12-05 16:04 | NUR ---
PATIENTS DAUGHTER AND SON EXPRESSED REFUSAL FOR HOME HEALTH FOLLOW UP.
== END 2018-12-05 15:45 | disposition home health service (06) | DRG 881 ==
LOC: ED 13:49 → MU 21:16 → DU 21:16 → MU 12-04 09:23
PROVIDERS: Emergency Medicine; ADMIT Internal Medicine
DX: F32.9 Major depressive disorder, single episode, unspecified (principal); T40.4X2A Poisoning by other synthetic narcotics, intentional self-harm, initial encounter; R53.83 Other fatigue; E87.6 Hypokalemia; G20 Parkinson's disease; I10 Essential (primary) hypertension; E78.00 Pure hypercholesterolemia, unspecified; Z91.81 History of falling; Z68.21 Body mass index [BMI] 21.0-21.9, adult; Z79.82 Long term (current) use of aspirin; Y92.009 Unspecified place in unspecified non-institutional (private) residence as the place of occurrence of the external cause
CPT/HCPCS: 97116-GP; G0378; G0480; J7040